=== PATIENT | male | born 1995 | race Caucasian/White ===

== ENCOUNTER 2021-10-14 07:45 | Inpatient (IN) ==
[2021-10-14] MEDS ORDERED: GI Cocktail 40 ML EACH PO ONE (08:23)
[2021-10-14 09:49] LABS: Basophils % 0.4 %; Eosinophils # 0.1 K/mcL (0.0-0.6); Eosinophils % 0.8 %; Immature Granulocytes % 0.4 % (0-4); Lymphocytes # 1.7 K/mcL (0.6-4.6); Lymphocytes % 16.4 %; Mean Platelet Volume 11.4 fL (9.4-12.4); Monocytes # 0.9 K/mcL (0.0-1.3); Monocytes % 8.9 %; Neutrophils # 7.6 K/mcL (1.6-8.9); Platelet Count 176 K/mcL (140-400); Red Cell Distribution Width 13.1 % (11.5-14.5); Segmented Neutrophils % 73.1 %; White Blood Count 10.4 K/mcL (4.3-11.1)
[2021-10-14 09:59] LABS: Mean Corpuscular Hemoglobin 27.3 pg (28.0-33.3)
[2021-10-14 10:00] LABS: Hemoglobin 14.5 g/dL (12.9-16.9); Red Blood Count 5.32 M/mcL (4.19-5.50)
[2021-10-14 10:01] LABS: Mean Corpuscular HGB Conc 36.3 g/dL (31.6-35.5); Mean Corpuscular Volume 75.2 fL (83.0-100.0)
[2021-10-14] MEDS ORDERED: Ondansetron 4 MG/2 ML VIAL IVP ONE (10:12)
[2021-10-14] MEDS ORDERED: Morphine Sulfate 2 MG/ML SYRINGE IVP ONE ×2 (10:12→11:46)
[2021-10-14 10:45] LABS: Troponin I < 0.03 ng/mL (< 0.04)
[2021-10-14 10:46] LABS: Alanine Aminotransferase 45 Units/L (7-52); Albumin 4.3 g/dL (3.5-5.7); Albumin/Globulin Ratio 1.2 (1.1-2.2); Alkaline Phosphatase 128 Units/L (34-104); Aspartate Amino Transferase 35 Units/L (13-39); BUN/Creatinine Ratio 17 (6-26); Bilirubin,Indirect 0.6 mg/dL (0.0-1.0); Bilirubin,Total 0.6 mg/dL (0.3-1.0); Blood Urea Nitrogen 12 mg/dL (6-20); Calcium 9.3 mg/dL (8.6-10.3); Carbon Dioxide 17 mEq/L (23-29); Chloride 95 mEq/L (98-107); Globulin 3.7 g/dL (2.4-3.5); Glucose 307 mg/dL (70-105); Lipase 187 Units/L (11-82); Osmolality,Calculated 275 (280-300); Potassium 4.6 mEq/L (3.5-5.1); Sodium 127 mEq/L (136-145); Triglycerides > 5000 mg/dL (< 150); eGFR For African Americans > 60 (> 60); eGFR For Non-African Americans > 60 (> 60)
[2021-10-14] MEDS ORDERED: Isovue-370 500 ML BOTTLE IVP ONE (11:02)
[2021-10-14] MEDS ORDERED: 0.9 % Sodium Chloride 1,000 ML IVC ONE (11:03)
[2021-10-14] MEDS ORDERED: *HR* Dextrose 50 % in Water (Syg) 50 ML SYRINGE IVP PRN (12:22)
[2021-10-14] MEDS ORDERED: Naloxone 0.4 MG/ML INJ IVP PRN (13:02)
[2021-10-14 13:07] LABS: Influenza A PCR Negative (Negative); Influenza B PCR Negative (Negative); Resp. Syncytial Virus PCR Negative (Negative)
[2021-10-14 13:08] LABS: SARS-CoV-2 by PCR (In House) Negative (Negative)
[2021-10-14] MEDS ORDERED: *HR* HYDROmorphone (PF) 1 MG/ML SYRINGE IVP ONE (13:45)
[2021-10-14] MEDS: D5% in Lactated Ringers 1,000 ML IVC SCH ×2 (14:53→20:05)
[2021-10-14] MEDS: *HR* HYDROmorphone (PF) 1 MG/ML SYRINGE IVP PRN (17:07)
[2021-10-14 22:31] LABS: Triglycerides 3494 mg/dL (< 150)
[2021-10-14 22:58] LABS: Chloride 100 mEq/L (98-107); Potassium 4.2 mEq/L (3.5-5.1); Sodium 128 mEq/L (136-145)
[2021-10-14 22:59] LABS: BUN/Creatinine Ratio 16 (6-26); Blood Urea Nitrogen 11 mg/dL (6-20); Carbon Dioxide 16 mEq/L (23-29); Glucose 234 mg/dL (70-105); Osmolality,Calculated 273 (280-300); eGFR For African Americans > 60 (> 60); eGFR For Non-African Americans > 60 (> 60)
[2021-10-14 23:39] LABS: Calcium 8.4 mg/dL (8.6-10.3)
[2021-10-15] MEDS: Acetaminophen IV 1,000 MG/100 ML BAG IVPB PRN ×3 (00:15→23:10)
[2021-10-15] MEDS: D5% in Lactated Ringers 1,000 ML IVC SCH ×5 (00:57→23:09)
[2021-10-15] MEDS: *HR* HYDROmorphone (PF) 1 MG/ML SYRINGE IVP PRN ×3 (02:30→19:03)
[2021-10-15 05:41] LABS: Mean Corpuscular HGB Conc 34.9 g/dL (31.6-35.5); Mean Corpuscular Volume 74.4 fL (83.0-100.0); Mean Platelet Volume 11.5 fL (9.4-12.4); Platelet Count 236 K/mcL (140-400); Red Blood Count 5.24 M/mcL (4.19-5.50); Red Cell Distribution Width 13.6 % (11.5-14.5)
[2021-10-15 05:42] LABS: Hemoglobin 13.6 g/dL (12.9-16.9); White Blood Count 16.4 K/mcL (4.3-11.1)
[2021-10-15] MEDS: *HR* Enoxaparin 40 MG/0.4 ML SYRINGE SQ SCH (05:55)
[2021-10-15 06:37] LABS: Alanine Aminotransferase 31 Units/L (7-52); Albumin 3.5 g/dL (3.5-5.7); Albumin/Globulin Ratio 1.1 (1.1-2.2); Alkaline Phosphatase 85 Units/L (34-104); Aspartate Amino Transferase 23 Units/L (13-39); BUN/Creatinine Ratio 16 (6-26); Bilirubin,Total 0.5 mg/dL (0.3-1.0); Blood Urea Nitrogen 10 mg/dL (6-20); Calcium 8.6 mg/dL (8.6-10.3); Carbon Dioxide 21 mEq/L (23-29); Chloride 100 mEq/L (98-107); Globulin 3.2 g/dL (2.4-3.5); Glucose 173 mg/dL (70-105); Magnesium 1.8 mg/dL (1.6-2.6); Osmolality,Calculated 275 (280-300); Potassium 3.4 mEq/L (3.5-5.1); Sodium 131 mEq/L (136-145); Total Protein 6.7 g/dL (6.4-8.9); Triglycerides 1706 mg/dL (< 150); eGFR For African Americans > 60 (> 60); eGFR For Non-African Americans > 60 (> 60)
[2021-10-15] MEDS: Fenofibrate 54 MG TABLET PO SCH (09:17)
[2021-10-15 23:59] LABS: Sodium 129 mEq/L (136-145); Triglycerides 593 mg/dL (< 150)
[2021-10-16] MEDS: *HR* HYDROmorphone (PF) 1 MG/ML SYRINGE IVP PRN ×4 (02:31→19:58)
[2021-10-16] MEDS: D5% in Lactated Ringers 1,000 ML IVC SCH ×3 (04:21→10:55)
[2021-10-16] MEDS: *HR* Enoxaparin 40 MG/0.4 ML SYRINGE SQ SCH (05:20)
[2021-10-16 06:24] LABS: Hematocrit 39.5 % (37.5-50.1); Hemoglobin 13.7 g/dL (12.9-16.9); Mean Corpuscular HGB Conc 34.7 g/dL (31.6-35.5); Mean Corpuscular Hemoglobin 26.5 pg (28.0-33.3); Mean Corpuscular Volume 76.4 fL (83.0-100.0); Mean Platelet Volume 12.3 fL (9.4-12.4); Platelet Count 212 K/mcL (140-400); Red Blood Count 5.17 M/mcL (4.19-5.50); Red Cell Distribution Width 13.8 % (11.5-14.5); White Blood Count 15.7 K/mcL (4.3-11.1)
[2021-10-16 06:44] LABS: BUN/Creatinine Ratio 13 (6-26); Blood Urea Nitrogen 7 mg/dL (6-20); Calcium 8.9 mg/dL (8.6-10.3); Carbon Dioxide 22 mEq/L (23-29); Chloride 101 mEq/L (98-107); Glucose 161 mg/dL (70-105); Osmolality,Calculated 275 (280-300); Potassium 3.9 mEq/L (3.5-5.1); Sodium 132 mEq/L (136-145); Triglycerides 579 mg/dL (< 150); eGFR For African Americans > 60 (> 60); eGFR For Non-African Americans > 60 (> 60)
[2021-10-16] MEDS: Fenofibrate 54 MG TABLET PO SCH (07:33)
[2021-10-16] MEDS ORDERED: Isovue-370 500 ML BOTTLE IVP ONE (10:18)
[2021-10-16] MEDS ORDERED: Ondansetron ODT 4 MG TAB.RAPDIS SL PRN (13:16)
[2021-10-16] MEDS ORDERED: Dextrose 4 GM Chewable Tablets PO PRN ×2 (13:51)
[2021-10-16] MEDS ORDERED: D5% in Water 1,000 ML IVC PRN (13:51)
[2021-10-16] MEDS: Ringers Solution, Lactated 1,000 ML IVC SCH ×3 (15:27→23:30)
[2021-10-16] MEDS: Pantoprazole 40 MG VIAL IVP SCH (17:25)
[2021-10-16] MEDS: Insulin LISPRO 300 UNITS/3 ML VIAL SUBQ SCH (18:00)
[2021-10-16] MEDS ORDERED: Insulin LISPRO 300 UNITS/3 ML VIAL SUBQ SCH (21:00)
[2021-10-17] MEDS: Insulin LISPRO 300 UNITS/3 ML VIAL SUBQ SCH ×4 (00:05→17:52)
[2021-10-17] MEDS: *HR* HYDROmorphone (PF) 1 MG/ML SYRINGE IVP PRN ×5 (02:54→20:02)
[2021-10-17 03:21] LABS: VBG Ionized Calcium 1.12 mmol/L (1.15-1.35)
[2021-10-17] MEDS: Ringers Solution, Lactated 1,000 ML IVC SCH ×6 (03:38→23:26)
[2021-10-17 03:40] LABS: Basophils % 0.1 %; Eosinophils # 0.1 K/mcL (0.0-0.6); Eosinophils % 0.3 %; Hematocrit 38.3 % (37.5-50.1); Hemoglobin 12.8 g/dL (12.9-16.9); Immature Granulocytes % 1.1 % (0-4); Lymphocytes # 1.3 K/mcL (0.6-4.6); Mean Corpuscular HGB Conc 33.4 g/dL (31.6-35.5); Mean Corpuscular Hemoglobin 26.1 pg (28.0-33.3); Mean Platelet Volume 12.3 fL (9.4-12.4); Monocytes # 1.9 K/mcL (0.0-1.3); Monocytes % 11.8 %; Neutrophils # 12.9 K/mcL (1.6-8.9); Platelet Count 205 K/mcL (140-400); Red Blood Count 4.91 M/mcL (4.19-5.50); Red Cell Distribution Width 13.9 % (11.5-14.5); Segmented Neutrophils % 78.7 %; White Blood Count 16.4 K/mcL (4.3-11.1)
[2021-10-17 03:55] LABS: Alanine Aminotransferase 20 Units/L (7-52); Albumin 3.2 g/dL (3.5-5.7); Albumin/Globulin Ratio 0.9 (1.1-2.2); Alkaline Phosphatase 86 Units/L (34-104); Aspartate Amino Transferase 14 Units/L (13-39); BUN/Creatinine Ratio 13 (6-26); Bilirubin,Total 0.7 mg/dL (0.3-1.0); Blood Urea Nitrogen 7 mg/dL (6-20); Calcium 8.8 mg/dL (8.6-10.3); Carbon Dioxide 20 mEq/L (23-29); Chloride 100 mEq/L (98-107); Globulin 3.6 g/dL (2.4-3.5); Glucose 204 mg/dL (70-105); Iron < 10 mcg/dL (65-175); Osmolality,Calculated 276 (280-300); Sodium 131 mEq/L (136-145); Total Protein 6.8 g/dL (6.4-8.9); Transferrin 184 mg/dL (203-362); eGFR For African Americans > 60 (> 60); eGFR For Non-African Americans > 60 (> 60)
[2021-10-17 03:57] LABS: Estimated Average Glucose 324 mg/dl; Hemoglobin A1C 12.9 %
[2021-10-17 05:52] LABS: Hepatitis B Surface Antigen Nonreactive (Nonreactive)
[2021-10-17] MEDS: *HR* Enoxaparin 40 MG/0.4 ML SYRINGE SQ SCH (06:01)
[2021-10-17 06:22] LABS: Hepatitis B Core IgM Nonreactive (Nonreactive)
[2021-10-17 06:23] LABS: Hepatitis A Antibody IgM Nonreactive (Nonreactive); Hepatitis C Virus Antibody Nonreactive (Nonreactive)
[2021-10-17] MEDS: Pantoprazole 40 MG VIAL IVP SCH (07:26)
[2021-10-17] MEDS: Fenofibrate 54 MG TABLET PO SCH (07:26)
[2021-10-18] MEDS: *HR* HYDROmorphone (PF) 1 MG/ML SYRINGE IVP PRN ×5 (00:19→20:05)
[2021-10-18] MEDS: Insulin LISPRO 300 UNITS/3 ML VIAL SUBQ SCH ×4 (00:28→17:56)
[2021-10-18] MEDS: Ringers Solution, Lactated 1,000 ML IVC SCH ×4 (03:06→17:56)
[2021-10-18] MEDS: *HR* Enoxaparin 40 MG/0.4 ML SYRINGE SQ SCH (06:10)
[2021-10-18 06:41] LABS: Hematocrit 36.2 % (37.5-50.1); Hemoglobin 11.7 g/dL (12.9-16.9); Mean Corpuscular HGB Conc 32.3 g/dL (31.6-35.5); Mean Corpuscular Hemoglobin 25.6 pg (28.0-33.3); Mean Corpuscular Volume 79.2 fL (83.0-100.0); Mean Platelet Volume 11.8 fL (9.4-12.4); Platelet Count 235 K/mcL (140-400); Red Blood Count 4.57 M/mcL (4.19-5.50); Red Cell Distribution Width 13.9 % (11.5-14.5); White Blood Count 13.2 K/mcL (4.3-11.1)
[2021-10-18 06:49] LABS: BUN/Creatinine Ratio 16 (6-26); Blood Urea Nitrogen 8 mg/dL (6-20); Calcium 8.6 mg/dL (8.6-10.3); Carbon Dioxide 19 mEq/L (23-29); Chloride 100 mEq/L (98-107); Glucose 197 mg/dL (70-105); Osmolality,Calculated 276 (280-300); Potassium 3.7 mEq/L (3.5-5.1); Sodium 131 mEq/L (136-145); Triglycerides 220 mg/dL (< 150); eGFR For African Americans > 60 (> 60); eGFR For Non-African Americans > 60 (> 60)
[2021-10-18] MEDS: Fenofibrate 54 MG TABLET PO SCH (08:48)
[2021-10-18] MEDS: Acetaminophen IV 1,000 MG/100 ML BAG IVPB PRN (22:07)
[2021-10-19] MEDS: Insulin LISPRO 300 UNITS/3 ML VIAL SUBQ SCH ×5 (01:21→20:34)
[2021-10-19] MEDS: *HR* HYDROmorphone (PF) 1 MG/ML SYRINGE IVP PRN (02:42)
[2021-10-19] MEDS: Ringers Solution, Lactated 1,000 ML IVC SCH ×2 (02:49→08:34)
[2021-10-19 05:50] LABS: BUN/Creatinine Ratio 14 (6-26); Blood Urea Nitrogen 7 mg/dL (6-20); Calcium 8.4 mg/dL (8.6-10.3); Carbon Dioxide 21 mEq/L (23-29); Chloride 101 mEq/L (98-107); Glucose 187 mg/dL (70-105); Osmolality,Calculated 281 (280-300); Potassium 3.6 mEq/L (3.5-5.1); Sodium 134 mEq/L (136-145); eGFR For African Americans > 60 (> 60); eGFR For Non-African Americans > 60 (> 60)
[2021-10-19] MEDS: *HR* Enoxaparin 40 MG/0.4 ML SYRINGE SQ SCH (06:22)
[2021-10-19] MEDS: Fenofibrate 54 MG TABLET PO SCH (07:41)
[2021-10-19] MEDS: Acetaminophen IV 1,000 MG/100 ML BAG IVPB PRN (07:42)
[2021-10-19 16:45] VITALS: PULSE 78; O2SAT 94
[2021-10-20] MEDS: *HR* Enoxaparin 40 MG/0.4 ML SYRINGE SQ SCH (05:04)
[2021-10-20] MEDS: Insulin LISPRO 300 UNITS/3 ML VIAL SUBQ SCH (07:36)
[2021-10-20] MEDS: Fenofibrate 54 MG TABLET PO SCH (07:36)
[2021-10-20 07:42] VITALS: BP 154/91; TEMP 98
== END 2021-10-20 11:11 | disposition home or self-care (01) | DRG 282 ==
LOC: EMEROOARM 07:45 → 2NENU 07:45 → SUATTDRO 17:58
PROVIDERS: ADMIT Internal Medicine; ATTEND Family Medicine